=== PATIENT | male | born 1990 | race Caucasian/White ===

== ENCOUNTER 2017-09-20 19:19 | Emergency (ER) | payer OTHER ==
[~2017-09-20] VITALS: Ht 185.4 cm; Wt 70.5 kg
[2017-09-20 19:26] VITALS: BP 136/71; TEMP 99.6
[2017-09-20] MEDS ORDERED: LEXAPRO 5MG5 MG (19:29)
[2017-09-20] MEDS ORDERED: ZOFRAN ODT4 MG PO (20:30)
[2017-09-20 20:41] VITALS: PULSE 89
== END 2017-09-20 20:41 | disposition home or self-care (01) ==
LOC: COL.ER 19:19
DX: S06.0X0A Concussion without loss of consciousness, initial encounter (principal); F90.9 Attention-deficit hyperactivity disorder, unspecified type; Z88.8 Allergy status to other drugs, medicaments and biological substances; W22.09XA Striking against other stationary object, initial encounter; Y99.0 Civilian activity done for income or pay